=== PATIENT | female | born 1980 | race Two or more races ===

== ENCOUNTER 2020-05-28 16:12 | Emergency (ER) | payer BC ==
[2020-05-28] MEDS: Ibuprofen 600 MG Tab PO ONE (16:36)
--- NOTE | 2020-05-28 16:41 | EDM.PDOC ---
ED HPI GENERAL MEDICAL PROBLEM - General Chief Complaint: Laceration Stated Complaint: left index finger tip laceration Time Seen by Provider: 05/28/20 16:30 Source of Information: Reports: Patient History Limitations: Reports: No Limitations - History of Present Illness INITIAL COMMENTS - FREE TEXT/NARRATIVE: Pt was cutting carrots with a knife and slipped sustaining a superficial avulsion of skin to the radial aspect of her left index finger DIP. Non-suturable. Onset: Today Onset Date: 05/28/20 Onset Time: 16:00 Location: Reports: Upper Extremity, Left Quality: Reports: Throbbing Severity: Mild Improves with: Reports: Rest Worsens with: Reports: None Associated Symptoms: Reports: No Other Symptoms ED ROS GENERAL - Review of Systems Review Of Systems: Comprehensive ROS is negative, except as noted in HPI. Constitutional: Reports: No Symptoms HEENT: Reports: No Symptoms Respiratory: Reports: No Symptoms Cardiovascular: Reports: No Symptoms GI/Abdominal: Reports: No Symptoms Skin: Reports: Other (left index finger laceration) Neurological: Reports: No Symptoms ED EXAM, SKIN/RASH Exam: See Below Exam Limited By: No Limitations General Appearance: Alert, WD/WN, No Apparent Distress, Anxious Ears: Normal External Exam Nose: Normal Inspection Head: Atraumatic Neck: Normal Inspection Respiratory/Chest: No Respiratory Distress Cardiovascular: Regular Rate, Rhythm Extremities: Normal Inspection Skin: Warm, Dry, Intact, Normal Color, Wound/Incision Location, Skin: Upper Extremity, Left, Other (left index finger DIP, radial aspect 0.25 x 1cm superficial skin avulsion - non-suturable) Associated features: No: Warmth, Tenderness, Swelling Course - Vital Signs Last Recorded V/S: Last Vital Signs Temp 98.5 F 05/28/20 16:39 Pulse 97 05/28/20 16:39 Resp 22 H 05/28/20 16:39 BP 141/100 H 05/28/20 16:39 Pulse Ox 99 05/28/20 16:39 - Orders/Labs/Meds Meds: Medications Discontinued Medications Generic Name Dose Route Start Last Admin Trade Name Freq PRN Reason Stop Dose Admin Ibuprofen Confirm 05/28/20 16:44 Motrin Administered 05/28/20 16:45 Dose 600 mg .ROUTE .STK-MED ONE Ibuprofen 600 mg 05/28/20 16:35 05/28/20 16:36 Motrin PO 05/28/20 16:36 600 mg ONETIME ONE Administration - Re-Assessments/Exams Free Text/Narrative Re-Assessment/Exam: 05/28/20 16:45 Wound was non-suturable. Surgicel dressing applied and bandaged Tdap was UTD. Pt was advised to keep wound clean, observe for any signs of infection; i.e redness, swelling, drainage. Remainder of Surgicel package given to patient to have if she needs to change dr arroyo over next day. Departure - Departure Time of Disposition: 16:54 Disposition: Home, Self-Care 01 Clinical Impression: Finger laceration - Discharge Information *PRESCRIPTION DRUG MONITORING PROGRAM REVIEWED*: Not Applicable *COPY OF PRESCRIPTION DRUG MONITORING REPORT IN PATIENT MARCELA: Not Applicable Instructions: Laceration Care, Adult, Wound Care, Adult Referrals: PCP,None [Primary Care Provider] - Forms: ED Department Discharge Sepsis Event Note (ED) - Focused Exam Vital Signs: Vital Signs Temp Pulse Resp BP Pulse Ox 05/28/20 16:39 98.5 F 97 22 H 141/100 H 99
[2020-05-28 16:42] VITALS: BP 141/100; PULSE 97
[2020-05-28] MEDS ORDERED: Ibuprofen 600 MG Tab ONE (16:44)
== END 2020-05-28 17:15 | disposition home or self-care (01) ==
LOC: LB.ED 16:12
DX: S61.211A Laceration without foreign body of left index finger without damage to nail, initial encounter (principal); W26.0XXA Contact with knife, initial encounter
CPT/HCPCS: 99282; A9270-GY